=== PATIENT | female | born 1995 | race Caucasian/White ===

== ENCOUNTER 2022-10-05 18:22 | Emergency (ER) | payer OTHER, SELFPAY ==
--- NOTE | ~2022-10-05 | XR_ITS ---
EXAMINATION: XR ABDOMEN KUB CLINICAL INDICATION: Constipation. COMPARISON: None TECHNIQUE: AP view of the abdomen. FINDINGS: Nonobstructive bowel gas pattern. Moderate to large amount of stool content in the rectum. No abnormal soft tissue calcifications. No acute osseous abnormalities. XR/XR KUB IMPRESSION: Moderate to large amount of stool content in the rectum. Nonobstructive bowel gas pattern.
--- NOTE | ~2022-10-05 | CT_ITS ---
EXAMINATION: CT ABDOMEN AND PELVIS WITHOUT CONTRAST CLINICAL INFORMATION: Abdominal pain. Evaluate for obstruction. COMPARISON: Abdominal radiograph from earlier today. TECHNIQUE: Multidetector volumetric imaging was performed from the superior aspect of the liver through the pubic symphysis. Sagittal and coronal reformatted images were obtained on the technologist's workstation. This CT examination was performed using dose optimization techniques as appropriate, variously including the following: *Automated exposure control *Adjustment of mA and/or kV according to patient size (this includes techniques or standardized protocols for targeted exams where dose is matched to indication/reason for exam; i.e. extremities or head) *Use of iterative reconstruction technique DLP: 841 mGy-cm FINDINGS: LUNG BASES: No focal consolidation or pleural effusion. LIVER, GALLBLADDER, AND BILIARY TREE: The liver measures 18 cm craniocaudally and demonstrates mild decreased attenuation suggesting hepatic steatosis. No discrete focal liver lesion noted in this limited noncontrast examination. Gallbladder calculus in the neck. No evidence of gallbladder wall thickening or pericholecystic inflammatory changes. PANCREAS: Unremarkable. SPLEEN: The spleen is enlarged measuring 15.8 cm anterior to posterior. ADRENAL GLANDS: Unremarkable. KIDNEYS AND URETERS: The kidneys are normal in size, shape, and attenuation. No hydronephrosis, hydroureter, or calculi seen. No perinephric stranding. BLADDER: Decompressed limiting its evaluation. GASTROINTESTINAL TRACT: The stomach and the small bowel are nondilated. Normal appendix. There is moderate to large amount of stool in the distal colon and rectum suggesting constipation. No pericolonic inflammatory changes. No evidence of bowel obstruction. ABDOMINAL WALL: No significant hernia is appreciated. LYMPH NODES: No pathologically enlarged lymph nodes. A few scattered prominent mesenteric lymph nodes are identified, nonspecific. VASCULAR: Limited noncontrast examination. The abdominal aorta is of normal diameter. PELVIC VISCERA: Unremarkable. OSSEOUS STRUCTURES: Unremarkable. CT/CT abdomen pelvis wo IV con IMPRESSION: 1. No evidence of bowel obstruction. 2. Cholelithiasis but no evidence of acute cholecystitis. 3. Mild hepatomegaly and hepatic steatosis. 4. Nonspecific splenomegaly. 5. Moderate to large amount of stool in the distal colon and rectum suggesting constipation.
[2022-10-05 18:36] VITALS: BP 123/83; PULSE 92; RESP 18; TEMP 36.2; O2SAT 97; BMI 36.0
--- NOTE | 2022-10-05 18:40 | ED.GENADULT ---
HPI - General Adult General Chief complaint: General Medical Stated complaint: constipation x1 wk Time Seen by Provider: 10/05/22 20:03 Related Data Previous Rx's Medication Instructions Recorded docusate sodium 100 mg capsule 100 mg PO BID #20 caps 10/05/22 (Colace) polyethylene glycol 3350 17 17 g PO BID PRN constipation #238 10/05/22 gram/dose oral powder (Miralax) grams sennosides 8.6 mg tablet (senna) 8.6 mg PO BEDTIME #14 tabs 10/05/22 Allergies Allergy/AdvReac Type Severity Reaction Status Date / Time amoxicillin Allergy Intermediate Rash Verified 10/05/22 18:38 azithromycin Allergy Intermediate Rash Verified 10/05/22 18:38 penicillin Allergy Severe Rash Uncoded 10/05/22 18:38 PMFSH Social History Social History Advance Directives: No Advance Directives Information Provided: Yes Physical Exam ED Vital Signs: Vital Signs - 24 hr 10/05/22 18:36 10/05/22 23:12 Temperature 97.2 F Pulse Rate 92 91 Respiratory Rate 18 18 Blood Pressure 123/83 131/80 Pulse Oximetry 97 96 Oxygen Delivery Method Room Air Room Air BMI result Body Mass Index 36.0 Course Course Course Narrative: RME--27-year-old female presenting to the ED complaining of constipation since Sunday. Admits is passing flatus. No BMs. Has tried OTC medication without relief. Denies abdominal pain, nausea, vomiting -KUB, GoLYTELY and senna ordered in triage Medications Administered Discontinued Medications Generic Name Dose Route Start Last Admin Trade Name Freq PRN Reason Stop Dose Admin Polyethylene Glycol/Electrolytes 4,000 ml 10/05/22 19:00 10/05/22 21:15 Peg 3350/Na Sulf,Bicarb,Cl/Kcl 4,000 Ml Soln.Recon PO 10/05/22 19:01 4,000 ml ONCE ONE Administration Senna 7.5 ml 10/05/22 18:38 10/05/22 20:08 Senna [place] Extract Oral Syrup 15 Ml Syrup PO 10/05/22 18:39 7.5 ml ONCE ONE Administration Medical Decision Making Lab Data Labs: Lab Results 10/05/22 Range/Units 21:15 Urine Test NEGATIVE (NEGATIVE) Discharge Plan Discharge Clinical Impression: Constipation Patient Disposition: Home, Self-Care Instructions: Constipation (ED), High Fiber Diet (ED) Additional Instructions: Take your medications as prescribed. If you were prescribed antibiotics today, it is important that you take your medication to their entirety, do not skip any doses, do not finish them early. Follow-up with your primary care provider this week. Return to the emergency department with new or worsening symptoms. Such as fevers, chills, chest pain, shortness of breath, nausea, vomiting, dizziness, headache, vision changes, lethargy, no bowel movements in 4 days require prompt emergency department evaluation, inability to fart. In case of emergency call 911 Increase your fiber intake. Drink plenty of water Prescriptions: New sennosides [senna] 8.6 mg tablet 8.6 mg PO BEDTIME Qty: 14 0RF docusate sodium [Colace] 100 mg capsule 100 mg PO BID Qty: 20 0RF polyethylene glycol 3350 [Miralax] 17 gram/dose powder 17 g PO BID PRN (Reason: constipation) Qty: 238 0RF Referrals: [facility] [Provider Group] - 2 days Physician,Unknown J [Primary Care Provider] - 2 days Stand Alone Forms: Work/School Release Interventions: ED Discharge Assessment Last Done: 10/05/22 23:14 Discharge Date/Time: 10/05/22 23:22
--- NOTE | 2022-10-05 20:09 | ED.GENADULT ---
HPI - General Adult General Chief complaint: General Medical Stated complaint: constipation x1 wk Time Seen by Provider: 10/05/22 20:03 Source: patient Mode of arrival: ambulatory Limitations: no limitations History of Present Illness HPI narrative: 27-year-old female with no past pertinent medical history presents today to the emergency department with a chief complaint of I am constipated . Symptoms began 4 days ago with abdominal pain and constipation, associated symptoms include abdominal pain and vomiting. Abdominal pain is located to right lower and left lower quadrants. Patient says she feels stool around the rectal opening however is unable to pass stool. Patient vomited once several days ago after taking medication on empty stomach, contents of the vomit were entirely medication. Patient has taking been taking stool softener as well as milk of magnesium for the past 2 days, resulting in no bowel movement. Patient denies a history of inflammatory bowel disease or IBS, however father has a history of IBS. No known triggers. No known sick contacts. Denies fevers, chills, shortness of breath, nausea, dysuria, hematuria, nocturia, or abnormal vaginal discharge. Has never seen a manager stone before. Has had constipation in the past through her life, but never to this severity. Related Data Previous Rx's Medication Instructions Recorded docusate sodium 100 mg capsule 100 mg PO BID #20 caps 10/05/22 (Colace) polyethylene glycol 3350 17 17 g PO BID PRN constipation #238 10/05/22 gram/dose oral powder (Miralax) grams sennosides 8.6 mg tablet (senna) 8.6 mg PO BEDTIME #14 tabs 10/05/22 Allergies Allergy/AdvReac Type Severity Reaction Status Date / Time amoxicillin Allergy Intermediate Rash Verified 10/05/22 18:38 azithromycin Allergy Intermediate Rash Verified 10/05/22 18:38 penicillin Allergy Severe Rash Uncoded 10/05/22 18:38 Review of Systems Review of Systems: Constitutional : No Weight loss, No Fever, No Chills, No Fatigue, No Malaise ENT/Mouth : No sore throat, No Rhinorrhea Eyes: No Eye Pain, No Swelling, No Redness Cardiovascular : No Chest Pain, No SOB, No Dyspnea on Exertion, No Orthopnea, No Edema, No Palpitations Respiratory : No Cough, No Sputum, No Wheezing Gastrointestinal : No Nausea, + Vomiting, No Diarrhea, + Constipation, + abdominal Pain, No Hematochezia, No Melena Genitourinary : No Dysuria, No Urinary Frequency, No Hematuria, Musculoskeletal : No joint pain, No Myalgias, No Joint Swelling Skin : No Skin Lesions, No rash Neuro : No Weakness, No Numbness, No Dizziness, No Headache Psych : No Anxiety/Panic, No Depression All other systems reviewed and are negative Yes all other systems are reviewed and are negative [facility] Past Medical History Attestation statement: The following information was validated with the patient. Source: old records reviewed and nursing notes reviewed Social History Social History Advance Directives: No Advance Directives Information Provided: Yes Physical Exam ED Vital Signs: Vital Signs - 24 hr 10/05/22 18:36 Temperature 97.2 F Pulse Rate 92 Respiratory Rate 18 Blood Pressure 123/83 Pulse Oximetry 97 Oxygen Delivery Method Room Air BMI result Body Mass Index 36.0 vss Appearance: Alert.? Oriented X3.? No acute distress.? Head: Normocephalic, atraumatic, no step-offs or deformities Eyes: Pupils equal, round and reactive to light.?.? CVS: Normal heart rate and rhythm.? Pulses normal.? Respiratory: No respiratory distress.? Breath sounds normal.? Abdomen: Soft, nondistended, tender ? Skin: Skin warm and dry.? Normal skin color.? Normal skin turgor.? Extremities: No lower extremity edema.? No calf ttp. 5/5 strength to bilateral upper and lower extremities Neuro: Oriented X 3.? No motor deficit.? No sensory deficit. CN 2-12 intact Course Reevaluation(s) Reevaluation #1: KUB showing moderate to large amount of stool in the rectum. Nonobstructive bowel gas pattern to confirm a CT of the abdomen and pelvis was obtained, which is showing no obstruction and moderate to large amount of stool in distal colon and rectum. No relief with medications given. At this time manual disimpaction will be done. Time: 22:40 Reevaluation #2: At this time manual disimpaction done with some success, all moderate amount of stool was expelled from patient's rectum, patient reported discomfort and wanted me to stop ( build technician Janay SESAY). Patient reports symptomatic relief to a certain degreee now has the urge to go . At this time patient will be discharged home with GI follow-up. Advised to return with new or worsening symptoms. Will be discharged on senna, Colace, MiraLax. Comfortable discharge home with prompt PCP follow-up advised return with new or worsening symptoms which are outlined on her discharge. Time: 22:42 Medications Administered Discontinued Medications Generic Name Dose Route Start Last Admin Trade Name Rogerio PRN Reason Stop Dose Admin Polyethylene Glycol/Electrolytes 4,000 ml 10/05/22 19:00 10/05/22 21:15 Peg 3350/Na Sulf,Bicarb,Cl/Kcl 4,000 Ml Soln.Recon PO 10/05/22 19:01 4,000 ml ONCE ONE Administration Senna 7.5 ml 10/05/22 18:38 10/05/22 20:08 Senna [place] Extract Oral Syrup 15 Ml Syrup PO 10/05/22 18:39 7.5 ml ONCE ONE Administration Medical Decision Making MDM Narrative Medical decision making narrative: 27-year-old presents with constipation times a few days worsening. Patient has history of chronic constipation. Not followed by GI. Physical examination benign. Plan at this time is to obtain a CT of the abdomen pelvis rule out obstruction. A KUB was ordered from triage. No need for labs at this time. Medical Records Medical records reviewed: Yes I reviewed the patient's medical records. Lab Data Lab results reviewed: Yes I reviewed the patient's lab results. Labs: Lab Results 10/05/22 Range/Units 21:15 Urine Test NEGATIVE (NEGATIVE) Critical Care Time Critical Care Time Critical Care Time: No Discharge Plan Discharge Clinical Impression: Constipation Patient Disposition: Home, Self-Care Instructions: Constipation (ED), High Fiber Diet (ED) Additional Instructions: Take your medications as prescribed. If you were prescribed antibiotics today, it is important that you take your medication to their entirety, do not skip any doses, do not finish them early. Follow-up with your primary care provider this week. Return to the emergency department with new or worsening symptoms. Such as fevers, chills, chest pain, shortness of breath, nausea, vomiting, dizziness, headache, vision changes, lethargy, no bowel movements in 4 days require prompt emergency department evaluation, inability to fart. In case of emergency call 911 Increase your fiber intake. Drink plenty of water Prescriptions: New sennosides [senna] 8.6 mg tablet 8.6 mg PO BEDTIME Qty: 14 0RF docusate sodium [Colace] 100 mg capsule 100 mg PO BID Qty: 20 0RF polyethylene glycol 3350 [Miralax] 17 gram/dose powder 17 g PO BID PRN (Reason: constipation) Qty: 238 0RF Referrals: Physician,Unknown J [Primary Care Provider] - 2 days [facility] [Provider Group] - 2 days Stand Alone Forms: Work/School Release
--- OUTSIDE RECORDS SUMMARY | 2022-10-05 20:16 | XMS_ITS | Continuity of Care Document ---
:1995 Author Organization [facility] [address] [place] [address]- Care Team Providers Name Role Phone Negin Mckeon MD Primary Care Physician Encounter [facility] [place] Date(s): 07/19/22 - 08/18/22 [facility] [address] [place] [id number] Allergies, Adverse Reactions, Alerts Substance Reaction Severity Status penicillin Active Medications PROzac 10 mg oral capsule 10 mg, 1, capsule, By Mouth, Daily, Refills 0, Maintenance, 06/12/22 14:20:00 EDT, Partial fill uponpatient request if the prescription is for a schedule II opioid drug. Start Date: 06/12/22 Status: Ordered Patient Care team information PersonnelName: Negin Mckeon MD Address: Address: [address] [place] [id number]
--- OUTSIDE RECORDS SUMMARY | 2022-10-05 20:16 | XMS_ITS | Continuity of Care Document ---
:1995 Author Organization [facility] [place] Address [address] [place] [address]- Care Team Providers Name Role Phone Negin Mckeon MD Primary Care Physician Encounter [facility] Date(s): 08/28/22 - 09/27/22 [facility] [address] [place] [address]- us Attending Physician: Jay Rasheed Admitting Physician: Jay Rasheed Referring Physician: AdmtrJay Allergies, Adverse Reactions, Alerts Substance Reaction Severity Status penicillin Active Medications PROzac 10 mg oral capsule 10 mg, 1, capsule, By Mouth, Daily, Refills 0, Maintenance, 06/12/22 14:20:00 EDT, Partial fill uponpatient request if the prescription is for a schedule II opioid drug. Start Date: 06/12/22 Status: Ordered Note Event Display: Ultrasound Neck, Non-BH Authored Date: Patient Care team information Care Team PersonnelName: Negin Mckeon MD Position: Reference Physician Member Role: PCP Address: Address: [address] [place] [id number]- Care Team Related PersonsName: FREEDOMROYA Address: home [address] [place] [address] Name: SAQIB LOJA Address: home [address] [place] [address]
--- OUTSIDE RECORDS SUMMARY | 2022-10-05 20:16 | XMS_ITS ---
:1995 Author Care Team Providers Name Role Phone [facility] Primary Care Pro vider [phone] Allergies Code Code System Name Reaction Severity Status Onset 723 RxNorm Amoxicillin ? ? Active ? 48941 RxNorm Azithromycin ? ? Active ? Penicillins ? ? Active ? Medications Name Status Start Date Stop Date ? ? azithromycin 500 mg tabs Completed ? 020 clindamycin HCl 300 mg capsule Completed ? 11/19/2019 TAKE 1 CAPSULE BY MOUTH EVERY 8 HOURS FOR 10 DAYS doxycycline monohydrate 100 mg capsule Active ? Not available TAKE 1 CAPSULE BY MOUTH TWICE DAILY FOR 7 DAYS EluRyng 0.12 mg-0.015 mg/24 hr vaginal ring Active ? Not available INSERT ONE RING VAGINALLY AND LEAVE IN PLACE FOR 3 CONSECUTIVE WEEKS THEN REMOVE FOR 1 WEEK. INSERT NEW RING 7 DAYS AFTER THE LAST WAS REMOV fluconazole 150 mg tablet Active ? Not av ailable fluconazole 150 mg tabs Completed ? 05/21/20 20 hydroxyzine pamoate 25 mg capsule Active ? Not available metronidazole 500 mg tabs Completed ? 2019 metronidazole vaginal 0.75 % gel Completed ? 05/21/2020 Vitamins Plus Low Iron 27 mg iron-1 mg tablet Completed ? 09/19/2020 TAKE 1 TABLET BY MOUTH EVERY DAY prochlorperazine maleate 10 mg tablet Completed ? 09/19/2020 TAKE 1 TABLET BY MOUTH EVERY 6 TO 8 HOURS NEEDED FOR NAUSEA AND VOMITING Sprintec (28) Completed ? 09/19/2020 Sprintec (28) 0.25 mg-35 mcg tablet Completed ? 09/19/2020 tri-sprintec 0.18/0.215/0.25 mg-35 mcg tabs Completed ? 05/21/2020 valacyclovir 500 mg tablet Completed ? 09/19 TAKE 1 TABLET BY MOUTH EVERY DAY valacyclovir hydrochloride 500 mg tabs Completed ? 05/21/2020 Zithromax Z-Dread 250 mg tablet Completed ? TAKE 2 TABLETS (500 MG) BY ORAL ROUTE O NCE DAILY FOR 1 DAY THEN 1 TABLET (250 MG) BY ORAL ROUTE ONCE DAILY FOR 4 DAYS Problems None recorded. Procedures None recorded. Results Lab Results Date Name Specimen Result Interpretation Description Value Range Status Address ? 05/21/2020 SARS CoV 2 Nasopharyngeal ? Covid-19 ? 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 ? Nasopharyngeal ? Covid-19 swab ? Final [facility] PCR Reference Specimen Laborato nazario: Source [address], [place] 05/16/2019 Rapid Flu ? Flu negative ? ? B yst [facility] (A+B) Feeding Hi lls: [address], [place] 05/16/2019 Rapid Strep ? Strep positive ? ? Byst [facility] Group a, Feeding [place]: Throat [address], Feeding [place] ? Rapid Strep ? Strep negative ? ? Bys t [facility] Group a, Feeding [place]: Throat [address], Feeding [place] l[place] Past Encounters None recorded. Social History Tobacco Smoking Status Never Smoker Vaccine List None recorded. Plan of Care Reminders Provider Appointments None recorded. ? ? Lab None recorded. ? ? Referral None recorded. ? ? Procedures None recorded. ? ? Surgeries None recorded. ? ? Imaging None recorded. ? ? Vitals Blood Pressure 116/70 mm[Hg]
--- OUTSIDE RECORDS SUMMARY | 2022-10-05 20:16 | XMS_ITS | Continuity of Care Document ---
:1995 Author Organization [facility] [place] Address [address] [place] [address]- Care Team Providers Name Role Phone Negin Mckeon MD Primary Care Physician [phone] Encounter [facility] Date(s): 08/25/22 - 09/24/22 [facility] [address] [place], [place] [address] Allergies, Adverse Reactions, Alerts Substance Reaction Severity Status penicillin Active Medications PROzac 10 mg oral capsule 10 mg, 1, capsule, By Mouth, Daily, Refills 0, Maintenance, 06/12/22 14:20:00 EDT, Partial fill uponpatient request if the prescription is for a schedule II opioid drug. Start Date: 06/12/22 Status: Ordered Patient Care team information PersonnelName: Negin Mckeon MD Address: Address: [address] [place] [id number]
--- OUTSIDE RECORDS SUMMARY | 2022-10-05 20:16 | XMS_ITS | Continuity of Care Document ---
:1995 Author Organization [facility] [place] Address [address] [place] [address]- Care Team Providers Name Role Phone Kem Cabrales MD, Negin Primary Care Physician Encounter [facility] Date(s): 06/12/22 - 07/12/22 [facility] [place] [address] [place], [place] [address] Attending Physician: Jay Rasheed Admitting Physician: AdmJay busch Referring Physician: Admtr, Ar8 Allergies, Adverse Reactions, Alerts Substance Reaction Severity Status penicillin Active
[2022-10-05] MEDS: PEG 3350/Na Sulf,Bicarb,Cl/KCL 4,000 ML SOLN.RECON 4000 ML PO (21:15)
[2022-10-05 21:27] LABS: UPreg QC Valid YES; Urine Pregnancy NEGATIVE (NEGATIVE)
[2022-10-05 23:12] VITALS: BP 131/80; PULSE 91; RESP 18; O2SAT 96
== END 2022-10-05 23:22 | disposition home or self-care (01) ==
PROVIDERS: Physician Assistant; Emergency Provider Emergency Medicine
DX: K59.00 Constipation, unspecified (principal); R10.13 Epigastric pain; Z79.899 Other long term (current) drug therapy
CPT/HCPCS: 74018; 74176; 81025; 99284